=== PATIENT | male | born 1985 | race Caucasian/White ===

== ENCOUNTER 2025-01-30 20:41 | Emergency (ER) | payer BC ==
[~2025-01-30] VITALS: Ht 180.3 cm; Wt 79.5 kg
[2025-01-30] MEDS: NORCO 5/325MG TABLET (HOME DOSE PACK) PO ONE (22:50)
[2025-01-30 22:55] VITALS: BP 131/76; TEMP 97.8; O2SAT 98
== END 2025-01-30 22:57 | disposition home or self-care (01) ==
LOC: M ED 20:41
DX: S92.512A Displaced fracture of proximal phalanx of left lesser toe(s), initial encounter for closed fracture (principal); Y92.019 Unspecified place in single-family (private) house as the place of occurrence of the external cause; Y93.9 Activity, unspecified; Y99.9 Unspecified external cause status; W10.8XXA Fall (on) (from) other stairs and steps, initial encounter; Z88.2 Allergy status to sulfonamides